=== PATIENT | female | born 1945 | race Caucasian/White ===

== ENCOUNTER → 2016-08-01 | Outpatient (CLI) | payer MEDICARE, BC ==
[~2016-08-01] MED LIST: CITRACAL ECONO200 MG PO; FEMARA PO; KLOR-CON 1010 MEQ PO; LEVAQUIN 750MG750 M1 PO; MULTIPLE VITAMI1 CAP PO; PRILOSEC 20MG20 MG PO; PROAIR HFA0.09 MG/AC IH; VYTORIN 10 MG-21 TAB PO
== END ==
LOC: COL.RAD 09:10
DX: J90 Pleural effusion, not elsewhere classified (principal); G95.89 Other specified diseases of spinal cord; M89.9 Disorder of bone, unspecified
CPT/HCPCS: A9503; Q9967

== ENCOUNTER → 2016-09-22 | Outpatient (CLI) | payer MEDICARE, BC ==
[2016-09-22 12:42] LABS: CREATININE, serum 0.63 mg/dL (0.52-1.25)
== END ==
LOC: COL.RAD 11:51
PROVIDERS: Psychiatry & Neurology Neurology
DX: R53.1 Weakness (principal); M51.24 Other intervertebral disc displacement, thoracic region; M48.04 Spinal stenosis, thoracic region; G95.9 Disease of spinal cord, unspecified
CPT/HCPCS: A9585

== ENCOUNTER → 2017-10-18 | Outpatient (CLI) | payer MEDICARE, BC | LOC: COL.RAD 09:36 | DX: C79.51 Secondary malignant neoplasm of bone (principal); S22.030A Wedge compression fracture of third thoracic vertebra, initial encounter for closed fracture; S24.109A Unspecified injury at unspecified level of thoracic spinal cord, initial encounter | CPT/HCPCS: A9585 ==